=== PATIENT | male | born 1955 | race Caucasian/White ===

== ENCOUNTER 2016-11-18 23:25 | Emergency (ER) | payer MEDICARE, OTHER ==
[~2016-11-18] VITALS: Ht 167.6 cm; Wt 81.6 kg
[2016-11-19] MEDS ORDERED: ACTIVATED CHARCOAL 50 GM/240 ML SOL ONE (00:15)
[2016-11-19] MEDS ORDERED: ACTIVATED CHARCOAL 50 GM/240 ML SOL PO ONE (00:30)
[2016-11-19 00:37] LABS: Basophils # (auto) 0.2 uL; Basophils % (auto) 1.2 % (0.0-2.0); DEFINITIVE VIEW TRANSMISSION; Eosinophils # (auto) 0.3 uL; Eosinophils % (auto) 2.3 % (0.0-7.0); Hematocrit 43.2 % (41.0-53.0); Hemoglobin 14.4 g/dL (13.5-17.5); Lymphocytes # (auto) 2.3 uL; Lymphocytes % (auto) 17.6 % (10.0-50.0); Mean Corpuscular Hemoglobin 31.3 pg (28.0-32.0); Mean Corpuscular Hgb Conc. 33.5 g/dL (32.0-36.0); Mean Corpuscular Volume 93.6 fL (80.0-100.0); Mean Platelet Volume 7.9 fL (7.4-10.4); Monocytes # (auto) 1.9 uL; Monocytes % (auto) 14.3 % (0.0-12.0); Neutrophils # (auto) 8.3 uL; Neutrophils % (auto) 64.6 % (37.0-80.0); Platelet Count (auto) 267 10^3/uL (140-450); Red Cell Distribution Width 12.8 % (11.6-16.0)
[2016-11-19 00:42] LABS: Acetaminophen < 2.0 ug/mL (10-30); Albumin 3.5 g/dL (3.4-5.0); BUN/Creatinine Ratio 12.3; Calcium 8.2 mg/dL (8.5-10.1); INR 1.06 (0.9-1.15); Partial Thromboplastin Time 28.7 sec (22.64-33.71); Potassium 3.4 mmol/L (3.5-5.1); Prothrombin Time 11.5 sec (9.37-12.3); Salicylate 5.4 mg/dL (2.8-20.0)
[2016-11-19 00:45] LABS: Bilirubin, Total 0.3 mg/dL (0.2-1.0); Total Protein 7.4 g/dL (6.4-8.2)
[2016-11-19] MEDS ORDERED: SODIUM CHLORIDE 0.9% 1,000 ML IV ONE (02:00)
[2016-11-19 10:44] VITALS: BP 178/81
== END 2016-11-19 10:47 | disposition home or self-care (01) ==
LOC: ER 23:25
DX: T40.2X1A Poisoning by other opioids, accidental (unintentional), initial encounter (principal); T50.2X1A Poisoning by carbonic-anhydrase inhibitors, benzothiadiazides and other diuretics, accidental (unintentional), initial encounter; Y92.9 Unspecified place or not applicable; Z86.73 Personal history of transient ischemic attack (TIA), and cerebral infarction without residual deficits; G89.4 Chronic pain syndrome
CPT/HCPCS: 36415; 80053; 80329; 85025; 85610; 85730; 93005; 94761; 96360; 99285; G0434; J7030